=== PATIENT | male | born 1975 | race Caucasian/White ===

== ENCOUNTER 2017-08-24 15:01 | Emergency (ER) | payer BC, OTHER ==
[2017-08-24 15:46] VITALS: BP 150/84; PULSE 83; TEMP 98.6; BMI 33.9
[2017-08-24] MEDS ORDERED: KETOROLAC TROMETHAMINE 60 MG/2 ML VIAL IM ONE (17:18)
[2017-08-24] MEDS ORDERED: KETOROLAC TROMETHAMINE 60 MG/2 ML VIAL ONE (17:21)
--- NOTE | 2017-08-24 17:26 | PDOC ---
History of Present Illness - General Chief Complaint: Back Pain Stated Complaint: BACK PAIN Time Seen by Provider: 08/24/17 17:13 History Source: Patient Exam Limitations: No Limitations - History of Present Illness Initial Comments: 08/24/17 17:21 41 yr male history of low back pain states last night was putting on his socks and then coughed pulling his low back. Pt felt pain to the low back. no abd pain or urine or bowel dysfunction. no numbness or tingling. took aleve at 8am. Past History - Past Medical History Allergies/Adverse Reactions: Allergies Allergy/AdvReac Type Severity Reaction Status Date / Time cefaclor [From [facility]] Allergy Verified 08/24/17 15:35 Penicillins Allergy Verified 08/24/17 15:35 Home Medications: Ambulatory Orders Cyclobenzaprine HCl [Flexeril 10 mg] 10 mg PO TID PRN #21 tablet 08/24/17 Naproxen [Naprosyn -] 500 mg PO BID PRN #28 tablet 08/24/17 COPD: No - Suicide/Smoking/Psychosocial Hx Smoking History: Current every day smoker Information on smoking cessation initiated: No Hx Alcohol Use: No Drug/Substance Use Hx: No Substance Use Type: None Trauma Specific PMHX - Complaint Specific PMHX Arthritis: No Back Injury: Yes Neck Injury: No Review of Systems - Review of Systems Able to Perform ROS?: Yes Is the patient limited Arabic proficient: No Constitutional: No: Symptoms Reported HEENTM: No: Symptoms Reported Respiratory: No: Symptoms reported Cardiac (ROS): No: Symptoms Reported ABD/GI: No: Symptoms Reported : No: Symptoms Reported Musculoskeletal: Yes: Back Pain Integumentary: No: Symptoms Reported Neurological: No: Symptoms reported *Physical Exam - Vital Signs Last Vital Signs Temp Pulse Resp BP Pulse Ox 98.6 F 83 18 150/84 100 08/24/17 15:36 08/24/17 15:36 08/24/17 15:36 08/24/17 15:36 08/24/17 15:36 - Physical Exam General Appearance: Yes: Nourished, Appropriately Dressed HEENT: positive: EOMI, GREGG, Normal ENT Inspection, TMs Normal, Pharynx Normal Neck: positive: Supple. negative: Tender Respiratory/Chest: positive: Lungs Clear, Normal Breath Sounds. negative: Chest Tender Cardiovascular: positive: Regular Rhythm, Regular Rate Gastrointestinal/Abdominal: positive: Normal Bowel Sounds, Soft Musculoskeletal: positive: Normal Inspection, Muscle Spasm (right lower paraspinal lumbar soft tissue tenderness , neg spinal tenderness ). negative: CVA Tenderness, CVA Tenderness (R), CVA Tenderness (L) Extremity: positive: Normal Capillary Refill, Normal Inspection, Normal Range of Motion. negative: Tender Integumentary: positive: Normal Color, Dry, Warm Neurologic: positive: Fully Oriented, Alert, Normal Mood/Affect, Normal Response , Motor Strength 5/5 Medical Decision Making - Medical Decision Making 08/24/17 17:26 cc: low back pain started last night no numbness or tingling, no urine or bowel dysfunction will give toradol neg SLR neg saddle anesthesia *DC/Admit/Observation/Transfer Diagnosis at time of Disposition: Back pain at L4-L5 level - Discharge Dispostion Disposition: HOME Condition at time of disposition: Good - Prescriptions Prescriptions: Cyclobenzaprine HCl [Flexeril 10 mg] 10 mg PO TID PRN #21 tablet PRN Reason: Muscle Spasms Naproxen [Naprosyn -] 500 mg PO BID PRN #28 tablet PRN Reason: Back Pain - Referrals Referrals: Abdoulaye Tripathi MD [Staff Physician] - - Patient Instructions Additional Instructions: follow with the orthopedist for follow up call tomorrow to make appointment take naprosyn for pain take flexeril for muscle spasm no heavy lifting or bending - Post Discharge Activity Forms/Work/School Notes: Back to Work
== END 2017-08-24 17:40 | disposition home or self-care (01) ==
LOC: JERFT 15:01 → JER 15:01 → JERFT 17:40
PROC: 3E0233Z Introduction of Anti-inflammatory into Muscle, Percutaneous Approach (ICD-10-PCS; principal; 2017-08-24)
DX: M54.5 Low back pain (principal); F17.210 Nicotine dependence, cigarettes, uncomplicated; X50.1XXA Overexertion from prolonged static or awkward postures, initial encounter; Y93.89 Activity, other specified; Y92.038 Other place in apartment as the place of occurrence of the external cause
CPT/HCPCS: 99281-25